=== PATIENT | female | born 1955 | race Caucasian/White ===

== ENCOUNTER → 2023-10-19 10:44 | Outpatient (CLI) | payer OTHER, SELFPAY | LOC: PHYS 10:46 | PROVIDERS: Family Provider Family Medicine; PCP Family Medicine; Referring Provider Family Medicine; Visit Provider Family Medicine | DX: M54.10 Radiculopathy, site unspecified (principal); R29.898 Other symptoms and signs involving the musculoskeletal system | CPT/HCPCS: 95885; 95886; 95910; 95912 ==